=== PATIENT | male | born 1940 | race Caucasian/White ===

== ENCOUNTER 2016-11-22 08:22 | Inpatient (IN) | payer MEDICARE, BC ==
[2016-11-22] VITALS (41 sets, daily range): BP systolic 63–128; BP diastolic 43–69; PULSE 74–157; RESP 12–27; Ht 170.2 cm; Wt 63.0 kg
[~2016-11-22] VITALS: Ht 170.2 cm; Wt 63.0 kg
[2016-11-22] MEDS ORDERED: ALPR0.254 G-TUBE (11:15)
[2016-11-22] MEDS ORDERED: MAGN400O4 G-TUBE (11:15)
[2016-11-22] MEDS ORDERED: [UNRECOGNIZED DRUG - CODE] IV (11:15)
[2016-11-22] MEDS ORDERED: ALBUMIN HUMAN 25% 100 ML IV ONE (11:30)
[2016-11-22] MEDS ORDERED: [UNRECOGNIZED DRUG - CODE] G-TUBE (11:38)
[2016-11-22] MEDS ORDERED: PEG15DRO2 OP (11:38)
[2016-11-22] MEDS ORDERED: DOXA2TAB61 G-TUBE (11:38)
[2016-11-22] MEDS ORDERED: HYDR-3671 GTB (11:38)
[2016-11-22] MEDS ORDERED: LANS30CA PEG (11:38)
[2016-11-22] MEDS ORDERED: NORepinephrine 8MG/250 ML (PMX 250 ML ONE (11:57)
--- NOTE | 2016-11-22 11:59 | CONS ---
Date/Time of Note Date/Time of Note DATE: 11/22/16 TIME: 11:59 Assessment/Plan Assessment/Plan Additional Assessment/Plan patient seen and examined. full note to follow Consultation Date/Type/Reason Admit Date/Time Nov 22, 2016 at 10:09 Initial Consult Date Exam/Review of Systems Vital Signs Vitals Vital Signs Date Time Temp Pulse Resp B/P Pulse Ox O2 Delivery O2 Flow Rate FiO2 11/22/16 11:53 93 18 100 30 Medications Medications Current Medications Albumin Human 100 ml @ 100 mls/hr Q1H ONCE IV Last administered on 11/22/16t 11:48; Admin Dose 100 MLS/HR; Start 11/22/16 at 11:30; Stop 11/22/16 at 12:29 Norepinephrine (Levophed) 250 ml @ 1.875 mls/ hr TITRATE IV ; Start 11/22/16 at 12:00 HERO FELIPE MD Nov 22, 2016 11:59
--- NOTE | 2016-11-22 11:59 | CONS ---
DATE OF ADMISSION: 11/22/2016 DATE OF CONSULTATION: 11/22/2016 PULMONARY CONSULTATION REASON FOR CONSULTATION: Respiratory failure. Thank you, Dr. Mccoy, for this consultation. HISTORY OF PRESENT ILLNESS: This is an unfortunate 76-year-old gentleman with history of COPD, hype rtension, hyperlipidemia, history of tracheostomy who was doing well on cool aerosol on [facility], managed for chronic hypercapnia, but over the past few days has had progressive and ongoing a cute lower GI bleeding. The patient now transferred to [facility] for further monitoring and emergent colonoscopy. Currently, he remains awake, alert, oriented, hemodyna mically stable. No evidence of respiratory distress. However, he has been placed back on KIMI and m echanical ventilation. PAST MEDICAL HISTORY: 1. Acute on chronic hypoxemic hypercapnic respiratory failure. 2. Recent chronic obstructive pulmonary disease exacerbation. 3. History pneumococcal pneumonia. 4. History of lung nodule. 5. Dysphagia with G-tube. 6. Nonsustained ventricular tachycardia. 7. History of lower GI bleed. MEDICATIONS: Per chart. ALLERGIES: NONE. SOCIAL HISTORY: He is a nonsmoker, no alcohol, no history of drug use. FAMILY HISTORY: Noncontributory. SYSTEMS REVIEW: A 14-point review of systems was negative other than that mentioned above. PHYSICAL EXAMINATION: GENERAL: Elderly gentleman, awake, alert, oriented, comfortable at rest, attempting to ta lk in full and complete sentences. VITAL SIGNS: Temperature 98, pulse is 100, O2 saturation 96%, FIO2 of 100%. NECK: Supple. No JVD or lymphadenopathy. CARDIAC: S1, S2, no added sounds or murmurs. CHEST: Diminished air entry bilaterally. ABDOMEN: Soft, nontender. No guarding or rebound. EXTREMITIES: No cyanosis, clubbing, ____ edema. NEUROLOGIC: Generalized weakness. LABORATORY DATA: White count 11.5, hemoglobin 7.8, platelets of 159. INR 1.06. BUN 57, creatinine 1.07. IMPRESSION AND PLAN: 1. Acute lower gastrointestinal bleed. Will require emergent colonoscopy and evaluation. Differen tial does include diverticular disease versus acute infectious process versus malignancy. 2. Chronic respiratory failure, now requiring KIMI and mechanical ventilation during this episode of possible instability. 3. Dysphagia with G-tube feeding, currently on hold. 4. History of chronic obstructive pulmonary disease, currently stable. Also continue DVT and GI pr ophylaxis. I will make sure he has adequate IV access. Dictated By: BON VILLATORO/EMMA Conf#: [id number] DID#: [id number]
[2016-11-22] MEDS ORDERED: NORepinephrine 8MG/250 ML (PMX 250 ML IV SCH (12:00)
--- NOTE | 2016-11-22 12:12 | HP ---
DATE OF ADMISSION: 11/22/2016 CHIEF COMPLAINT: Acute gastrointestinal bleed. HISTORY OF PRESENT ILLNESS: This is a 76-year-old male with a past medical history of COPD, periphe ral vascular disease, history of chronic lower back pain, who was initially admitted to [facility] after patient was being found down and unresponsive. The patient during his hospital cour se at [place] was diagnosed with severe COPD exacerbation, sepsis, pneumonia. The patient was intubated. During his hospital course, the patient had atrial fibrillation, acute kidney injury. T he patient clinically improved, but patient was able to be weaned. As a result, he was trached and pegged and was transferred to [facility] for continued weaning. While at [place], the patient was noted to be stable. He was under TIPS protocol and was successfully being weaned off t he vent. The patient did have episodes of confusion and was being seen by psychiatrist. The areli magana also had electrolyte abnormalities, which were being managed. The patient 1 day prior to admissio n was noted to have an episode of GI bleeding. He was seen by furnace keeper, Dr. Bryant. The patient was started on GoLYTELY and then suddenly developed gross bright red blood per rectum. The patient was subsequently transferred over to [facility] intensive care unit. Upon my evaluation, the patient at this time is currently stable on ventilatory support. The areli magana's is at bedside. The patient is able to nod yes and no to simple questions and appears to be in no distress. There were no reports of hemoptysis, no rashes, no fevers, no chills. PAST MEDICAL HISTORY: As stated above, history of COPD, history of peripheral vascular disease, his tory of chronic back pain. PAST SURGICAL HISTORY: Status post trach and PEG. FAMILY HISTORY: Noncontributory. SOCIAL HISTORY: He does not smoke, does not drink or do drugs. ALLERGIES: NO KNOWN DRUG ALLERGIES. MEDICATIONS: Have been reviewed and reconciled. REVIEW OF SYSTEMS: A 14-point review of systems was conducted. Pertinent positives stated in the H PI, otherwise negative. PHYSICAL EXAMINATION: VITAL SIGNS: Blood pressure is 74/53, respirations 18, pulse 93, temperature 98.6. HEENT: Head is normocephalic. NECK: Shows trach. HEART: Regular rate. LUNGS: Show diminished breath sounds at the bases. ABDOMEN: Soft, nontender to palpation. No rebound or guarding. EXTREMITIES: Negative for clubbing, cyanosis. No edema. DERMATOLOGIC: No rashes. Positive decubitus wound. MUSCULOSKELETAL: No joint effusions. NEUROLOGIC: No focal deficits. LABORATORY DATA: The patient's white count is 11.5, hemoglobin 7.8, hematocrit 24.8, platelet count 159. Sodium 138, potassium 4.6, chloride 95, BUN 57, creatinine 1.07. Albumin 3.0. ASSESSMENT AND PLAN: 1. Acute lower gastrointestinal bleed, etiology is unclear. Differential is broad including divert icular versus hemorrhoidal versus other. The patient is currently in the intensive care unit. He w ill be typed and crossed and transfused 2 units of PRBC. We will plan for a colonoscopy today by Dr Baron Bryant. We will continue to monitor closely. 2. Anemia secondary to lower gastrointestinal bleed. We will continue to monitor hemoglobin and he matocrit levels. The patient is scheduled for transfusion. 3. Ventilatory dependent respiratory failure. Continue TIPS protocol. 4. Hyponatremia secondary to syndrome of inappropriate antidiuretic hormone. Sodium levels have im proved. Continue to monitor. 5. Hematuria, resolved. Etiology is unclear, possibly from Garrett trauma. Continue to monitor. 6. Dysphagia status post PEG. We will resume tube feeding once the patient is clinically stable. 7. Sepsis secondary to pneumonia. The patient is completing antibiotic course. Continue to monito r. Follow up with Infectious Disease. 8. Diabetes. Continue Accu-Cheks and insulin sliding scale. 9. Hypotension. Etiology secondary to volume depletion due to recent GI bleed. The patient is sta tus post 1 bolus of normal saline. We will bolus another liter of fluid. The patient is scheduled for blood transfusion. We will continue to monitor closely. 10. Nonsustained ventricular tachycardia, stable. Continue to monitor. 11. History of chronic obstructive pulmonary disease. 12. Anxiety disorder, depression. Continue to monitor. 13. Subclinical hypothyroidism. Continue to monitor. 14. Gastrointestinal and deep venous thrombosis prophylaxis. Continue proton pump inhibitor and se quential leg squeezers. Please note I spent up to 25 minutes in face to face time with the patient. The patient is a FULL C ODE. Dictated By: VELMA SALAS/EMMA Conf#: [id number] DID#: [id number]
[2016-11-22] MEDS ORDERED: FENTAnyl 50 MCG/ML VIAL ONE (12:33)
[2016-11-22] MEDS ORDERED: FENTAnyl 50 MCG/ML VIAL IV ONE (13:00)
[2016-11-22] MEDS ORDERED: SERT50TA G-TUBE (13:03)
[2016-11-22] MEDS ORDERED: PRED20TA G-TUBE (13:03)
[2016-11-22] MEDS ORDERED: TRAZ50TA18 PO (13:03)
[2016-11-22] MEDS ORDERED: GLUCOSE GEL 15 GRAM TUBE BUCCAL PRN (13:30)
[2016-11-22] MEDS ORDERED: ALPRAZOLAM 0.25 MG TAB GTB PRN (13:30)
[2016-11-22] MEDS ORDERED: GLUCAGON 1 MG INJ IM PRN (13:30)
[2016-11-22] MEDS ORDERED: GLUCOSE GEL 15 GRAM TUBE PO PRN ×2 (13:30)
[2016-11-22] MEDS ORDERED: ACETAMINOPHEN 650MG/20.3ML CUP GTB PRN (13:30)
[2016-11-22] MEDS ORDERED: DEXTROSE 50% 50 ML SYRINGE IV PRN ×2 (13:30)
[2016-11-22] MEDS ORDERED: MAGNESIUM HYDROXIDE 30ML CUP GTB PRN (13:30)
[2016-11-22] MEDS ORDERED: traZODone 50 MG TAB PO PRN (13:30)
[2016-11-22] MEDS ORDERED: PROPOFOL 20 ML ONE (13:33)
--- NOTE | 2016-11-22 13:41 | CONS ---
Date/Time of Note Date/Time of Note DATE: 11/22/16 TIME: 13:35 Assessment/Plan Assessment/Plan Chief Complaint/Hosp Course 1. Acute gi bleed 2. hx of resp failure 3. Hx of pvd, htn 4. hx of mrsa and esbl kleb pneumo r: 1. monitor closely off abx 2. f/u colo findings. Problems: Consultation Date/Type/Reason Admit Date/Time Nov 22, 2016 at 10:09 Date of Consultation: Nov 22, 2016 Type of Consultation: id Reason for Consultation id Referring Provider: EVLMA SORTO DO Hx of Present Illness This is a 76 yo male with hx of copd, pvd, who was recently admitted to [facility] for septic shock and mods. He eventually required trach. He was treated for MRSA pna and transferred to [facility]. He recently complted a course of Meropenem for ESBL Klebsiella PNA. He was being monitored off abx. He developed acute rectal bleeding this am. His family apparently has indicated he has a hx of fistula in the past. He was transfered to ICU and scheduled to undergo emergent colo. unable to compile as patient is going for colo Exam/Review of Systems Vital Signs Vitals Vital Signs Date Time Temp Pulse Resp B/P Pulse Ox O2 Delivery O2 Flow Rate FiO2 11/22/16 11:53 93 18 100 30 Exam going for colo Results Results 24 hrs Laboratory Tests Test 11/22/16 13:30 Bedside Glucose 183 Medications Medications Current Medications Norepinephrine (Levophed) 250 ml @ 1.875 mls/ hr TITRATE IV Last administered on 11/22/16t 12:25; Admin Dose 1.875 MLS/HR; Start 11/22/16 at 12:00 Acetazolamide (Diamox) 500 mg QHS IV ; Start 11/22/16 at 21:00 Alprazolam (Xanax) 0.25 mg Q4H PRN GTB ANXIETY; Start 11/22/16 at 13:30 Ascorbic Acid (Vitamin C) 500 mg Q4 PRN GTB ANXIETY; Start 11/22/16 at 13:30; Status UNV Doxazosin Mesylate (Cardura) 2 mg QHS GTB ; Start 11/22/16 at 21:00 Hydralazine HCl (Apresoline) 25 mg Q8 GTB ; Start 11/22/16 at 14:00 Lansoprazole (Prevacid) 30 mg DAILY@06 PEG ; Start 11/23/16 at 06:00 Magnesium Hydroxide (Milk Of Mag) 30 ml Q6H PRN GTB DISTENSION/GAS/BLOATING; Start 11/22/16 at 13:30 Prednisone (Prednisone) 20 mg DAILY GTB ; Start 11/23/16 at 09:00 Sertraline HCl (Zoloft) 50 mg QHS GTB ; Start 11/22/16 at 21:00 Trazodone HCl (Desyrel) 50 mg QHS PRN PO ANXIETY; Start 11/22/16 at 13:30 Miscellaneous Information 15 ml Q8 PRN OP DRY EYES; Start 11/22/16 at 13:30; Status UNV Acetaminophen (Tylenol Liquid) 650 mg Q6H PRN GTB PAIN AND OR ELEVATED TEMP; Start 11/22/16 at 13:30 Insulin Aspart (Novolog Insulin Pen) NOVOLOG *MODERATE* ALGORI... Q4 SC ; Start 11/22/16 at 17:00 Miscellaneous Information 1 ea NOTE XX ; Start 11/22/16 at 13:30 Glucose (Glutose) 15 gm Q15M PRN PO DECREASED GLUCOSE; Start 11/22/16 at 13:30 Glucose (Glutose) 22.5 gm Q15M PRN PO DECREASED GLUCOSE; Start 11/22/16 at 13: 30 Dextrose (D50w Syringe) 25 ml Q15M PRN IV DECREASED GLUCOSE; Start 11/22/16 at 13:30 Dextrose (D50w Syringe) 50 ml Q15M PRN IV DECREASED GLUCOSE; Start 11/22/16 at 13:30 Glucagon (Glucagen) 1 mg Q15M PRN IM DECREASED GLUCOSE; Start 11/22/16 at 13:30 Glucose (Glutose) 15 gm Q15M PRN BUCCAL DECREASED GLUCOSE; Start 11/22/16 at 13 :30 HERO FELIPE MD Nov 22, 2016 13:41
--- NOTE | 2016-11-22 14:29 | GILP ---
DATE OF PROCEDURE: 11/22/2016 PROCEDURE PERFORMED: Colonoscopy with biopsy. INDICATION: The patient is a 76-year-old male undergoing this procedure for recurrent rectal bleedi ng. Patient was on aspirin and also had a history of anal fistula. INFORMED CONSENT: The risk of the procedure, related and unrelated complications, anesthetic risks, alternatives discussed. Informed consent was obtained. DESCRIPTION OF PROCEDURE: The procedure was done in intensive care unit. His blood pressure was a bit low, but was well stabilized by the anesthesiologist. After optimal sedation, scope was passed with much ease into rectum. He had a very light brick colored liquidy stool. He had severe diverti culosis left side of the colon and there was a spasm. We gave Glucagon and managed to pass the scop e all the way into the cecum. Appendiceal orifice identified. IC valve was in a difficult position to intubate. The rest of the colon appeared normal, 2 polyps were identified, 1 cm in diameter. B oth were flat in the transverse colon, definitely not the cause of bleeding and the GoLYTEly on the right side of the colon had completely normal color. So ____the blood which we saw, altered blood, was only on the left side of the colon. Patient also had a significant hemorrhoid. IMPRESSION: 1. Moderate size hemorrhoid. 2. Severe diverticulosis left side of the colon could have been the cause of bleeding, and aspirin is definitely a factor. Negative all the way into the cecum, otherwise. 4. Two flat polyps 1 cm in the transverse colon. PLAN: At this point, is to discontinue aspirin altogether, transfuse patient p.r.n. If the vitals are stable, he can resume feeding. Dictated By: BELL SAMUEL/EMMA Conf#: [id number] DID#: [id number] CC: VELMA SORTO DO; BELL JOSEPH MD;*End*
[2016-11-22] MEDS ORDERED: ARTIFICIAL TEARS 15 ML OPH BOTH EYES PRN (14:30)
[2016-11-22] MEDS: INSULIN ASPART [NOVOLOG] 3 ML PEN SC SCH ×2 (17:00→21:00)
[2016-11-22] MEDS: DEXTROSE 5%-0.45% NACL 1,000 ML IV SCH ×2 (19:30→21:28)
--- NOTE | 2016-11-22 20:09 | CONS ---
DATE OF ADMISSION: 11/22/2016 DATE OF CONSULTATION: 11/22/2016 REFERRING PHYSICIAN: ____ REASON FOR CONSULTATION: Arrhythmia, atrial fibrillation. CHIEF COMPLAINT: GI bleed, respiratory failure. HISTORY OF PRESENT ILLNESS: Thank you for this referral. History is obtained from the patient, par t-time discussion with the staff, review of the old chart. The patient also known when he was admit jasen to the hospital at [place]. This 76-year-old gentleman with history of severe COPD, peripheral vascular disease, respiratory failure - status post tracheostomy, who had been transferred to [place] facility because of a GI bleed. The patient has had bleeding and severe anemia, underwent a colono scopy today. During colonoscopy, was in atrial fibrillation with rapid ventricular response, was al so hypotensive, required to be on Levophed. Has been transfused and currently off of Levophed trans fusion. No reported chest pain or pressure, denies any palpitations to me. PAST MEDICAL HISTORY: History of COPD, history of peripheral vascular disease, history of chronic b ack pain, history of respiratory failure - status post tracheostomy - vent-dependent now. SURGICAL HISTORY: Tracheostomy and PEG placement. Also has had ____ and peripheral vascular diseas e. FAMILY HISTORY: No reported history of coronary artery disease. SOCIAL HISTORY: Does not smoke or drink at this point. ALLERGIES: NO REPORTED ALLERGIES. MEDICATIONS: As per medication reconciliation, personally reviewed. REVIEW OF SYSTEMS: As above mentioned. PHYSICAL EXAMINATION VITAL SIGNS: Temperature 97.4, heart rate of 86, blood pressure 84/59, respiration rate of 13, satu rating 100%. HEENT: Normocephalic, atraumatic. Thin gentleman, in no acute distress. Pupils are equal. NECK: Supple, tracheostomy, on the vent. CARDIOVASCULAR: Regular rate, rhythm; systolic murmur. PULMONARY: No wheezes anteriorly. GASTROINTESTINAL: Soft, nontender. EXTREMITIES: No significant lower extremity edema. There are multiple ecchymoses in the lower extr emity. NEUROLOGIC: Awake, responds and alert. PSYCHIATRIC: Calm, pleasant. LABORATORY: WBC 11.5, hemoglobin 7.8, yesterday hemoglobin was 11.4 on review of the old chart. Pl atelets are 159. Sodium 138, potassium 4.6, BUN of 57, creatinine 1.07, glucose of 114. DATA REVIEW: Review of the old chart showed the patient's echocardiogram done on November 12, which w as personally reviewed, showed ejection fraction of 65%. The patient was normal in size. No diasto lic dysfunction noted. The rhythm strip was reviewed. Patient with evidence of atrial fibrillation and rapid ventricular response, converted back to sinus rhythm now. ASSESSMENT AND PLAN 1. Paroxysmal atrial fibrillation with rapid ventricular response. 2. Hypoxemia respiratory failure, status post tracheostomy - vent dependent. 3. Acute gastrointestinal bleed, status post a colonoscopy. 4. Severe anemia, secondary to above. 5. Hematuria, resolved now. 6. Dysphagia, status PEG placement. 7. History of chronic obstructive pulmonary disease. 8. History of peripheral vascular disease. 9. History of diabetes. 10. History of hypertension, currently hypotensive. 11. History of nonsustained ventricular tachycardia, currently appears to be in sinus. RECOMMENDATIONS: Electrolytes, including potassium, magnesium to be replaced as needed. Transfusio n is being done as we speak. Follow with GI recommendation. Vent support will be continued. Press ors as needed. Currently, patient is stable. Continue with the ICU care. Dictated By: GIANFRANCO MARTINEZ MD AV/EMMA Conf#: [id number] DID#: [id number] CC: VELMA SORTO DO;*EndCC*
[2016-11-22] MEDS ORDERED: DOXAZOSIN 2 MG TAB GTB SCH (21:00)
[2016-11-22] MEDS ORDERED: SERTRALINE 50 MG TAB GTB SCH (21:00)
[2016-11-22] MEDS ORDERED: ACETAZOLAMIDE 500 MG INJ IV SCH (21:00)
[2016-11-22 22:11] LABS: ADD SCAN DIFF NO
[2016-11-22 22:12] LABS: HEMATOCRIT 28.8 % (42.0-52.0); HEMOGLOBIN 9.5 g/dl (14.0-18.0); LYMPHOCYTES # 0.8 10^3/ul (0.8-2.9); LYMPHOCYTES % 10.6 % (15.0-51.0); MEAN CORPUSCULAR HEMOGLOBIN 32.1 pg (29.0-33.0); MEAN CORPUSCULAR VOLUME 97.3 fl (82.0-101.0); MEAN PLATELET VOLUME 9.2 fl (7.4-10.4); MONOCYTE # 0.1 10^3/ul (0.3-0.9); NEUTROPHIL # 6.7 10^3/ul (1.6-7.5); PLATELET COUNT 139 10^3/UL (140-415); RED BLOOD COUNT 2.96 10^6/ul (4.70-6.10); RED CELL DISTRIBUTION WIDTH 15.3 % (11.5-14.5); WHITE BLOOD COUNT 7.6 10^3/ul (4.8-10.8)
[2016-11-22 22:16] LABS: AADO2 Arterial 307.9 mmHg (7.0-24.0); Allen Test ACCEPTAB; Arterial Base Excess 4.1 mmol/L (-3.0-3); Arterial COHb 0.2 % (0.0-3.0); Arterial Fraction of Oxyhgb 88.3 % (93.0-99.0); Arterial HCO3 30.4 mmol/L (22.0-26.0); Arterial MetHb 0.5 % (0.0-1.5); Arterial Total Hemglobin 10.8 g/dl (12.0-18.0); MODE AC
[2016-11-22 22:25] LABS: ALBUMIN 2.5 g/dl (3.3-4.9)
[2016-11-22 22:26] LABS: POTASSIUM 3.4 mmol/L (3.5-5.1)
[2016-11-22 22:28] LABS: ALBUMIN/GLOBULIN RATIO 1.31; BILIRUBIN,INDIRECT 0.4 mg/dl (0-1.1); BILIRUBIN,TOTAL 0.4 mg/dl (0.2-1.3); TOTAL PROTEIN 4.4 g/dl (6.1-8.1)
[2016-11-22] MEDS ORDERED: VASOPRESSIN 60 UNIT in DEXTROSE 5% 57 ML IV SCH (23:45)
[2016-11-23] VITALS (15 sets, daily range): BP systolic 53–179; BP diastolic 35–141; PULSE 0–145; RESP 19–29
[2016-11-23] MEDS ORDERED: CA CHLORIDE 10% 10 ML SYRINGE ONE
[2016-11-23] MEDS ORDERED: DEXTROSE 50% 50 ML SYRINGE ONE
[2016-11-23] MEDS ORDERED: NA BICARBONATE 8.4% 50 ML SYG ONE
[2016-11-23] MEDS ORDERED: EPINEPHrine 0.1 MG/ML SYG ONE
[2016-11-23] MEDS ORDERED: PHENYLephrine 20MG IN 250 ML 250 ML IV SCH (00:45)
[2016-11-23] MEDS: INSULIN ASPART [NOVOLOG] 3 ML PEN SC SCH (01:31)
--- NOTE | 2016-11-23 02:37 | QN ---
Documentation Comment I was called to room ICU 112 for evaluation of a patient with hypotension. This patient did have a rectal bleed on his admission to the intensive care unit and was hypotensive with a blood pressure in the 70s for systolic. The patient was on peripheral levo fed, phenylephrine, and vasopressin with no central line. I was called for central line placement. I did place a right femoral central line. Please see central line note. This patient tolerated the procedure well. Consent was obtained before placement. Central Line Placement by me: Patient consented, sterilely draped, full prep, gown, glove, mask, time out performed. Anesthesia: 1% lidocaine locally Location: Right femoral vein Device: Multiple lumen Technique: Seldinger technique. Secured with suture. Results: Venous return from all ports with easy saline flush. No complications. Guide wire retrieved and disposed of. [ED Ultrasound: Central line placed by me using concurrent ultrasound guidance. Real time image archived in the medical record confirms vascular anatomy. STEVAN GTZ DO Nov 23, 2016 02:37
[2016-11-23 02:52] LABS: AADO2 Arterial 594.3 mmHg (7.0-24.0); Allen Test ACCEPTAB; Arterial Base Excess -1.2 mmol/L (-3.0-3); Arterial COHb 0.2 % (0.0-3.0); Arterial Fraction of Oxyhgb 72.1 % (93.0-99.0); Arterial MetHb 0.3 % (0.0-1.5); MODE VENT - AC
--- NOTE | 2016-11-23 03:30 | QN ---
Documentation Comment I was called to room ICU 112 for a CODE BLUE. When I entered the room I saw patient was unresponsive being back through his tracheostomy tube. According to nursing staff this patient did go into a pulseless electrical activity. The patient did receive 1 mg of epinephrine prior to my arrival. He continued CPR via ACLS guidelines. This patient did receive 1 ampule of bicarbonate, 1 ampule of calcium chloride, and 1 ampule of D50. We will continue CPR in this patient's was at bedside. The patient's verbalized for us to stop CPR. He states that the patient does not want resuscitation. We did stop resuscitative efforts. There was no pulse, and the patient time of was called to 0321. I advised nursing staff to notify this patient's primary care physician and they verbalized understanding. Cardiopulmonary Resuscitation by me: See code documentation for specific details. ACLS and BLS were performed with high quality chest compressions and minimal interruptions. Reversible causes were assessed and treated. STEVAN GTZ DO Nov 23, 2016 03:30
--- NOTE | 2016-11-23 03:35 | RADRPT ---
PROCEDURE: CHEST CLINICAL INDICATION: 76-year-old male with respiratory distress. TECHNIQUE: AP view of the chest was obtained portably in the upright position on two radiographs. The images were reviewed on a PACS workstation. COMPARISON: Chest x-ray November 21, 2016; chest x-ray November 16, 2016. FINDINGS: There is a tracheostomy tube in place. The cardiomediastinal silhouette is within normal limits. T he thoracic aortic arch is calcified. Hyperinflation and chronic lung changes are noted. There has been interval development of consolidation within the right mid lung zone. There are mild bilatera l pleural effusions with bilateral lower lung zone atelectasis versus infiltrates. There is no evide nce for congestive heart failure. There is no evidence for pneumothorax. There is prominent gas with in the left upper quadrant beneath the hemidiaphragm presumably within the air-filled distended stom ach. There is a vascular stent seen. Degenerative changes are seen throughout the spine with multip le thoracic compression fractures which appear to have been present previously. IMPRESSION: 1. Tracheostomy tube. 2. Calcified thoracic aortic arch. 3. Chronic lung changes. 4. Interval development of dense right mid lung zone consolidation. There may be superimpose locula jasen fluid within the fissure. 5. Small bilateral pleural effusions. 6. Interval development of bilateral lower lung zone versus infiltrates. 7. Prominent gas within the left upper quadrant presumably within the air-filled distended stomach. 8. Vascular stent within the upper abdomen. 9. Degenerative changes throughout the spine with multiple thoracic compression fractures. .Adrian Martinez MD, Date Time Electronically viewed and signed by .Adrian Martinez MD, on 11/23/2016 03:34 .M/
[2016-11-23] MEDS ORDERED: LANSOPRAZOLE 30 MG CAP PEG SCH (06:00)
[2016-11-23] MEDS ORDERED: PHENYLephrine 40 MG in DEXTROSE 5% 496 ML IV SCH (07:00)
[2016-11-23] MEDS ORDERED: ASCORBIC ACID 500 MG TAB.CHEW GTB SCH (09:00)
[2016-11-23] MEDS ORDERED: ASCORBIC ACID 500 MG TAB GTB SCH (09:00)
[2016-11-23] MEDS ORDERED: predniSONE 20 MG TAB GTB SCH (09:00)
== END 2016-11-23 03:20 | disposition expired | DRG 378 ==
LOC: ICU 10:09
PROVIDERS: ADMIT Internal Medicine; ATTEND Internal Medicine
PROC: 5A1935Z Respiratory Ventilation, Less than 24 Consecutive Hours (ICD-10-PCS; 2016-11-22)
PROC: 30233N1 Transfusion of Nonautologous Red Blood Cells into Peripheral Vein, Percutaneous Approach (ICD-10-PCS; 2016-11-22)
PROC: 0DBE8ZX Excision of Large Intestine, Via Natural or Artificial Opening Endoscopic, Diagnostic (ICD-10-PCS; principal; 2016-11-22 12:00)
PROC: 06HM33Z Insertion of Infusion Device into Right Femoral Vein, Percutaneous Approach (ICD-10-PCS; 2016-11-23)
DX: K92.2 Gastrointestinal hemorrhage, unspecified (principal); J96.10 Chronic respiratory failure, unspecified whether with hypoxia or hypercapnia; Z99.11 Dependence on respirator [ventilator] status; I95.9 Hypotension, unspecified; Z93.0 Tracheostomy status; J44.9 Chronic obstructive pulmonary disease, unspecified; R13.10 Dysphagia, unspecified; I48.91 Unspecified atrial fibrillation; D64.9 Anemia, unspecified; E13.9 Other specified diabetes mellitus without complications; Z93.1 Gastrostomy status; F41.8 Other specified anxiety disorders; E03.9 Hypothyroidism, unspecified; K57.30 Diverticulosis of large intestine without perforation or abscess without bleeding; K64.9 Unspecified hemorrhoids; D12.3 Benign neoplasm of transverse colon
CPT/HCPCS: 36430; 36600; 71010; 80053; 82803; 82962; 85025; 86850; 86900; 86901; 86920; 87081; 92950; 94002; 94003; J1120; J0171; J1815; J2370; J3010; J7042; J7060; P9016; P9047